=== PATIENT | female | born 1965 | race African-American/Black ===

== ENCOUNTER 2021-06-10 07:19 | Day surgery (SDC) | payer OTHER ==
[2021-06-10] MEDS ORDERED: Ringers Lactate 1,000 ML IV ONE (07:42)
[2021-06-10] MEDS ORDERED: CEFAZOLIN/SWI 2gm 2 GM/20 ML SYR ONE (07:42)
[2021-06-10] MEDS ORDERED: BUPIVACAINE 0.5% PF 10 ML VIAL ONE (08:07)
[2021-06-10] MEDS ORDERED: BUPIVACAINE 0.25% PF 10 ML VIAL ONE (08:07)
[2021-06-10 08:12] LABS: Potassium 3.6 mmol/L (3.5-5.1)
[2021-06-10] MEDS ORDERED: propofoL 200 MG/20 ML VIAL IV ONE (08:25)
[2021-06-10] MEDS ORDERED: KETOROLAC 30 MG/ML INJ ONE (08:26)
[2021-06-10] MEDS ORDERED: FENTANYL CITR 100 MCG/2 ML ONE (08:26)
[2021-06-10] MEDS ORDERED: MIDAZOLAM HCL 2 MG/2 ML INJ ONE (08:26)
[2021-06-10] MEDS ORDERED: LIDOCAINE 2% MPF 5 ML VIAL ONE (08:26)
[2021-06-10] MEDS ORDERED: ONDANSETRON 4 MG/2 ML VIAL ONE (08:26)
--- NOTE | 2021-06-10 09:43 | P.OP ---
Preoperative diagnosis: RIGHT Dorsal Foot Cyst Postoperative diagnosis: RIGHT Dorsal Foot Intramuscular Hematoma Primary procedure: Incision and Drainage of RIGHT Dorsal Foot Intramuscular Hematoma Secondary procedure: Excision of small portion of extensor muscle Anesthesia: GETA + Local Estimated blood loss: <10cc Specimen: muscle debrided Findings: Intramuscular hematoma Complications: None Transferred to: Recovery Room Condition: Good
[2021-06-10 10:44] VITALS: BP 117/66; TEMP 96.9; O2SAT 99
--- NOTE | 2021-06-10 21:32 | OP ---
Date of Procedure: 06/10/2021 Surgeon: Britton Orozco MD, Preoperative Diagnosis: Right dorsal foot cyst. Postoperative Diagnosis: Right dorsal foot intramuscular hematoma. Procedures Performed: 1.Incision and drainage of right dorsal foot intramuscular hematoma. 2.Excision of small portion of extensor muscle surrounding hematoma compartment. Anesthesia: General endotracheal plus local with 0.25% Marcaine. Estimated Blood Loss: Less than 10 cc. Specimens: Muscle debridement, approximately quarter of a centimeter. Findings: Intramuscular hematoma in the dorsal extensor digitorum muscle. Complications: None. Disposition: The patient was transferred to recovery room in good condition. Procedure In Detail: After informed was obtained, the patient was brought to the operating room, pre pped and draped in the usual sterile fashion after adequate anesthesia was achieved. The patient was premarked in the preoperative area to identify the swelling and cystic-type structure in the right f oot. We then anesthetized the skin in the operating room overlying this swelling, dissected down thr ough subcutaneous tissue using electrocautery. I then used hemostats to bluntly dissect through the tissue planes to expose a swollen extensor compartment muscle on the dorsal aspect of the foot along the extensor digitorum muscles. At this point, I dissected bluntly down to expose a hematoma, which was found to be intramuscular substantive between the extensor tendons and the muscular layer overlyi ng. This was evacuated completely. There was some muscle, which appeared somewhat ischemic in this area. As such, I debrided this area as the dissection to expose this had devascularized some of thes e fibers. As such, these devascularized fibers were debrided sharply and a tie was placed on both th e proximal and distal aspects of this partial removal of infected muscle. These were sent off for pa thologic examination. I then inspected the area for hemostasis, which was properly achieved at this point with minimal electrocautery. The area was copiously irrigated and the deep dermal plane was th en reapproximated using 3-0 Vicryl suture, and the skin was closed with 4-0 Monocryl in a running fas hion. Dermabond was placed over the top. The patient tolerated procedure well without evidence of c omplication, transferred to PACU in good condition. All counts were correct at the end of the case. TK/CASTILLOL Voice ID: [id number] Report ID: [id number]
[2021-06-11] MEDS ORDERED: propofoL 200 MG/20 ML VIAL IV ONE (07:17)
[2021-06-11] MEDS ORDERED: FENTANYL CITR 100 MCG/2 ML ONE (07:17)
[2021-06-11] MEDS ORDERED: MIDAZOLAM HCL 2 MG/2 ML INJ ONE (07:17)
[2021-06-11] MEDS ORDERED: LIDOCAINE 2% MPF 5 ML VIAL ONE (07:17)
== END 2021-06-10 11:25 | disposition home or self-care (01) ==
LOC: OR 07:19
PROVIDERS: ATTEND Surgery
PROC: 0KBV0ZZ Excision of Right Foot Muscle, Open Approach (ICD-10-PCS; 2021-06-10)
PROC: 0KBV0ZZ Excision of Right Foot Muscle, Open Approach (ICD-10-PCS; principal; 2021-06-10 08:30)
DX: S90.31XA Contusion of right foot, initial encounter (principal); Z20.822 Contact with and (suspected) exposure to COVID-19
CPT/HCPCS: 28045; 13131; 80048; 36415; 88304; U0003; J2704; J2250; J3010; J0690; J7120; J2405